=== PATIENT | male | born 1970 | race Caucasian/White ===

== ENCOUNTER 2022-06-08 08:54 | Outpatient (REF) | payer OTHER, SELFPAY ==
[2022-06-08 11:08] LABS: MANUAL DIFF FLAG NO
[2022-06-08 11:12] LABS: Basophils Absolute Auto 0.1 X10*3/uL (0.0-0.2); Basophils Percent Auto 1.4 % (0-2); Eosinophils Absolute Auto 0.1 X10*3/uL (0.0-0.4); Eosinophils Percent Auto 2.3 % (0-4); Hematocrit 45.2 % (42.0-52.0); Hemoglobin 15.8 g/dl (14.0-18.0); Imm Gran Abs Auto 0.02 X10*3/uL (0.00-0.03); Imm Gran Pct Auto 0.6 % (0.0-0.4); Lymphocytes Absolute Auto 1.1 X10*3/uL (1.2-4.9); Lymphocytes Percent Auto 32.2 % (20-40); Mean Corpuscular Hemoglobin 32.2 pg (27.0-33.0); Mean Corpuscular Volume 92.1 fL (80.0-98.0); Mean Platelet Volume 10.9 fL (9.4-12.4); Monocytes Absolute Auto 0.3 X10*3/uL (0.1-1.2); Monocytes Percent Auto 9.6 % (2-11); Neutrophils Absolute Auto 1.9 x10*3/uL (2.0-8.3); Neutrophils Percent Auto 53.9 % (45-73); Platelet Count 168 X10*3/uL (160-400); Red Blood Count 4.91 X10*6/uL (4.60-5.80); Red Cell Distribution Width 11.8 % (11.0-16.0); White Blood Count 3.5 X10*3/uL (4.8-10.8)
[2022-06-08 11:45] LABS: Alanine Aminotransferase 109 U/L (0-40); Albumin Level 4.1 g/dL (3.5-5.0); Alkaline Phosphatase 99 U/L (39-117); Anion Gap 18 (12-20); Aspartate Amino Transferase 97 U/L (5-37); Bilirubin Total 0.8 mg/dL (0.0-1.0); Blood Urea Nitrogen 7 mg/dL (9-16); Calcium 8.5 mg/dL (8.4-10.2); Carbon Dioxide 26 mmol/L (22-29); Chloride 100 mmol/L (96-108); Cholesterol 239 mg/dL; Estimated Glomerular Filt Rate > 60; Glucose Random 270 mg/dL (60-115); HDL Cholesterol 37 mg/dL; Potassium 3.7 mmol/L (3.3-5.1); Sodium 140 mmol/L (135-145); Total Protein 6.9 g/dL (6.5-8.0); Triglycerides 542 mg/dL
[2022-06-08 12:50] LABS: Prostate Specific Antigen 0.55 ng/mL (<0.05-4.0)
== END 2022-06-08 08:55 | disposition home or self-care (01) ==
LOC: HO.MANLDS 08:54
PROVIDERS: Visit Provider Internal Medicine
DX: E78.1 Pure hyperglyceridemia (principal); Z12.5 Encounter for screening for malignant neoplasm of prostate
CPT/HCPCS: 36415; 80053; 80061; 84153; 85025

== ENCOUNTER 2022-06-20 14:45 | Outpatient (REF) | payer OTHER, SELFPAY ==
[2022-06-21 08:05] LABS: Estimated Average Glucose 209 mg/dL; Hemoglobin A1c % 8.9 %
== END 2022-06-20 14:46 | disposition home or self-care (01) ==
LOC: HO.MANLDS 14:45
PROVIDERS: Visit Provider Internal Medicine
DX: R73.01 Impaired fasting glucose (principal)
CPT/HCPCS: 36415; 83036